=== PATIENT | female | born 1955 | race Caucasian/White ===

== ENCOUNTER 2025-03-03 09:58 | Outpatient (OUT) | payer MEDICARE, OTHER, SELFPAY ==
--- NOTE | 2025-03-03 10:00 | CA_ITS ---
Patient Name: OLGA BLOCK MR#: [id number] : 1955 Exam Date: 03/03/2025 Ordering Doctor: DR SALLY FINN M.D. ECHOCARDIOGRAM REPORT PROCEDURE: CA ECHO DOPPLER COMPLETE INDICATIONS: Nonrheumatic mitral valve regurgitation, smoker COMPARISON: None. DESCRIPTION: COMPLETE ECHOCARDIOGRAM Real-time transthoracic echocardiography with 2D, M-mode, spectral and color flow Doppler performed. QUALITY: Technical quality was good. LEFT VENTRICLE: Normal chamber size. Normal left ventricular wall thickness. Global systolic function is mildly to moderately reduced. There is global hypokinesis. LV EF: Mildly to moderately reduced left ventricular ejection fraction, (40%). DIASTOLIC: ATRIAL SEPTUM: Visually appears intact. LEFT ATRIUM: Normal chamber size. RIGHT ATRIUM: Normal chamber size. RIGHT VENTRICLE: Normal chamber size. TRICUSPID VALVE: Normal mobility and thickness. No stenosis with trivial regurgitation. Doppler studies reveal mildly (35-45) elevated right sided pressures. RVSP 40 mmHg MITRAL VALVE: Normal mobility and thickness. No evidence of mitral valve stenosis. There is no mitral annular calcification. Moderate mitral regurgitation. AORTIC VALVE: Normal trileaflet appearance. No visible sclerosis. Normal leaflet mobility. No evidence of aortic valve stenosis. No aortic regurgitation. AORTIC ROOT: Normal diameter and appearance. PULMONIC VALVE: Normal thickness and mobility. No stenosis. No regurgitation. PERICARDIUM: No evidence of pericardial effusion. IVC: Collapses with inspirations. IVC is normal in size. PLEURA: CONCLUSION: 1. The left ventricle is normal in size and exhibits global hypokinesis with mildly to moderately reduced systolic function. LVEF is estimated at 40%. 2. Normal right ventricular size and systolic function. 3. Moderate mitral regurgitation. 4. Mildly elevated right-sided pressures. Adult Echocardiography Procedure Report Left Ventricle LVEDD (3.7 - 5.6 cm): 5.06 cm LVESD (2.2 - 4.0 cm): 4.05 cm LVIVS thickness (0.6 - 1.2 cm): 0.88 cm LVPW thickness (0.5 - 1.0 cm): 0.96 cm e': 0.06 m/s E - e': 9.32 LVOT Max Gradient: 1.28 mm[Hg] LVOT Area (cm2): 0.57 m/s Peak Velocity (LVOT): 0.57 m/s Mean Velocity (LVOT): 0.38 m/s LVOT Diameter 2.21 cm Left Atrium LA Volume Index (2D A2C): 27.79 ml/m2 Left Atrium Systolic Dimension: 3.09 cm Mitral Valve MV E to A Ratio: 0.66 Mitral Valve A-Wave Peak Velocity: 0.78 m/s Mitral Valve E-Wave Peak Velocity: 0.51 m/s Right Ventricle Aorta AO Root Diam: 2.90 cm Aortic Valve AoV Area (Peak Jacobo): 1.99 cm2, 1.99 cm2 AoV Area (VTI): 2.17 cm2, 2.17 cm2 Peak Velocity(Antegrade Flow): 1.09 m/s Peak Gradient(Antegrade Flow): 4.75 mm[Hg] Mean Velocity(Antegrade Flow): 0.71 m/s Mean Gradient(Antegrade Flow): 2.33 mm[Hg] Velocity Time Integral: 22.30 cm Tricuspid Valve Peak Velocity (Regurgitant Flow): 3.03 m/s, 2.83 m/s Pulmonic Valve Peak Gradient: 2.23 mm[Hg], 1.49 mm[Hg] Right Atrium Right Atrium Systolic Pressure: 37.20 ml, 37.20 ml Dictated by: Rony Harrell M.D. on 03/04/2025 at 17:52 Approved by: Rony Harrell M.D. on 03/04/2025 at 17:56
== END 2025-03-03 09:59 | disposition home or self-care (01) ==
LOC: CARD 09:58
PROVIDERS: PCP Family Medicine; Visit Provider Internal Medicine Interventional Cardiology
DX: I34.0 Nonrheumatic mitral (valve) insufficiency (principal)
CPT/HCPCS: 93306

== ENCOUNTER 2025-08-29 09:55 | Outpatient (OUT) | payer MEDICARE, OTHER, SELFPAY ==
--- OUTSIDE RECORDS SUMMARY | 2022-08-21 10:15 | XMS_ITS | Continuity of Care Document ---
Author Organization [facility] Address [address] [place] [address] Phone Care Team Providers Care Counter Maker Name Role Phone Visci DO DO, Louis Unavailable Unavailable Procedures Procedure Date Admin Moderna Bvalent Booster 18 And Old er Moderna Bivalent Booster 18 And Older No Advance Directives Directive Yes / No Effective Date File Name No Information Encounters Encounter Description Practice Location Reason(s) For Visit Diagnoses Date Provider Providers Copied on Encounter [facility], [address], [place], [id number], [place] tel:[phone] COVID E[facility]D No Information Visci Louis. [address], [place], [id number], [place]. tel:[phone] Family History Family Member Type Diagnosis Age At Onset No Information Immunizations Vaccine Date Status Comments Influenza, quadrivalent, hig h dose, injectable, split virus, preservative free, 0.7 mL dose, Fluzone High-Dose Quad refused Source: New Immuniza tion Record Cov-19 administered Source: New Imm unization Record Payers Payer name Insurance type Covered democrat ID Authoriza tion(s) Medicare PPS MB [id number] Medicare PPS MB [id number] Social History Type Description Quantity Date Captured Comments Alcohol Use Details Unknown Caffeine Use Details Unknown Tobacco Use Status No Information Smoking Status No Information Sex Female Sexual Orientation Straight or heterosexual Gender Identity Female Chief Complaint And Reason For Visit No Information Reason For Referral Reason For Referral No Information Plan Of Treatment Date Type Action Status Goal Influenza vaccine. Due on No v due Goal Mammogram. Due on due Goal PRAPARE ASSESSMENT. Due on N ov due Goal Zoster vaccine (). Due on due Goal Tdap. Due on due Goal FOBT. Due on due Goal Lipid panel. Due on due Goal Depression screening. Due on due Goal Colonoscopy. Due on due History Of Present Illness Encounter Date Complaint History Of Prese nt Illness No Information Functional Status Date Functional Assessmen t No Information Instructions Date Instruction Additional Infor mation No Information Assessments Type Assessment Date No Information Patient Care Teams Name Effective Dates (start - stop) Status Members No Information
--- OUTSIDE RECORDS SUMMARY | 2025-08-29 09:59 | XMS_ITS | Clinical Summary ---
Author Organization [facility] Address [facility] [place] [address] Care Team Providers Care Strip Cleaner Name Role Phone Louis Lara MD Primary Care Provider + Haim Hunt [facility] [phone] Allergies Active AllergyReactionsCriticalityNoted DwuwCxrasfdnQsutrrjwuiWgsuSmf69/30/2023 Medications * This document contains information received from the source organization and may not represent a complete record from that organization. MedicationSigDispense QuantityRefillsLast FilledStart DateEnd DateStatus fluticasone (FLONASE) 50 mcg/actuation nasal spray Use 1 Kinsey in each nostril daily at bedtime.ctive carvedilol (COREG) 3.125 mg tablet Take 1 tablet by mouth twice daily.ctive LORazepam (ATIVAN) 2 mg tab Take by mouth daily at bedtime.Active omeprazole (PRILOSEC) 20 mg capsule Indications:Multiple sclerosis,Depression, unspecified depression typeTake 20 mg by mouth once daily.Active atorvastatin (LIPITOR) 20 mg tablet Take 20 mg by mouth every morning.07/09/2023ctive acetaminophen (TYLENOL) 500 mg tablet Take 2 tablets by mouth every 6 hours. 31 tablet ctive DULoxetine (CYMBALTA) 60 mg capsule Indications:Other depression,ParesthesiaTake 1 capsule by mouth two times a day. 180 capsule /20/2026Active OXcarbazepine (TRILEPTAL) 150 mg tablet Take 1 tablet by mouth two times a day. Needs appointment 180 tablet 5Active pregabalin (LYRICA) 150 mg capsule Indications:Paresthesia,Neuropathic painTake 1 capsule by mouth two times a day for 90 days. 180 capsule 110//[id number]/6Active lactobacillus rhamnosus (CULTURELLE) 10 billion cell capsule Take 1 capsule by mouth once daily. 31 capsule /iscontinued(Course of therapy completed) ARIPiprazole (ABILIFY) 5 mg tablet Indications:Other depressionTake 1 tablet by mouth once daily. 90 tablet /Discontinued(Course of therapy completed) pregabalin (LYRICA) 150 mg capsule Indications:Paresthesia,Neuropathic painTake 1 capsule by mouth two times a day for 90 days. 180 capsule /Discontinued Active Problems ProblemNoted DateDiagnosed PijjChtrusmwznfq08/27/2025Gastrointestinal hemorrhage 12/15/2024Lower abdominal pain01/21/2024Gastroesophageal reflux disease /Mixed vejlpoihukspvk05 Overview (09/30/2023): Last Assessment & Plan: Continue lipitor 20 mg daily Lipid levels are much better controlled Liver function normal Assessment & Plan (02/03/2024 9:25 AM EDT): Assessment: stable with statin therapy Assessment & Plan (10/01/2023 12:20 PM EST): Assessment: Controlled with statin. Monitored per PCP. Mitral valve oysgzuwiexzzp63/30/202312/ Overview (09/30/2023): Last Assessment & Plan: Will monitor with routine echocardiogram Assessment & Plan (02/03/2024 9:26 AM EDT): Assessment: stable, moderate per echo Assessment & Plan (10/01/2023 12:22 PM EST): Assessment: Stable, moderate per last echo 03/2023. Follows with cardiology. Chronic pain dmafhvqs89/27/2016Tobacco use pbacveqt49/27/2016 Assessment & Plan (02/03/2024 9:28 AM EDT): Assessment: quit 06/2022 30 pack years Assessment & Plan (10/01/2023 12:24 PM EST): Assessment: Quit 4 months ago Raynaud iurscrc4012/22/2014Neuropathic pain12/22/2014Peripheral neuropathy 12/18/2014bnormality of gait07/11/2014Multiple gwivkrkps53/23/2014 Assessment & Plan (02/03/2024 9:25 AM EDT): Assessment: stable , follows with neurology last ov 07/2023 Assessment & Plan (10/01/2023 12:20 PM EST): Assessment: Stable, following with neurology - last seen 08/11/23. Not currently on medications Depressive nudczgtm50/29/2012 Assessment & Plan (10/01/2023 12:24 PM EST): Assessment: On RX medication Generalized anxiety wwlntdeg12Essential lwblzlheufop05/29/2012 09/30/2023 Overview (09/30/2023): Last Assessment & Plan: Hypertension is Well-controlled blood pressure 110/70 PCP stopped her lisinopril related to an allergic reaction- She had a rash Continue carvedilol 3.125 mg twice daily Assessment & Plan (02/03/2024 9:26 AM EDT): Assessment: stable with current therapy Coronary lsycauszfcczbxr63 Overview (09/30/2023): MILD 3-VESSEL CAD Last Assessment & Plan: Coronary artery disease is stable Continue GDMT continue risk factor modifications- heart healthy diet, regular exercise as tolerated and continue all medications. MILD 3-VESSEL CAD Assessment & Plan (02/03/2024 9:27 AM EDT): Assessment: mild 3 vessel cad Stable Assessment & Plan (10/01/2023 12:23 PM EST): Assessment: Stable, EF 55-60% per last echo. Follows with cardiology Resolved Problems ProblemNoted DateDiagnosed DateResolved DateAttention to jmgpuulnj39/05/2024 02/18/2024elvic abscess in wnkpyz48S/P ggpstduqy22/18/2023 3Colonic massRectal bleed/02/2024Iron deficiency aixxal33/Lupus vwwyledabmyqv49/15/2013ongestive heart akpvtrp71 Overview (12/15/2024): EF BACK TO NML (65%) 01/30 Encounters * This document contains information received from the source organization and may not represent a complete record from that organization. DateTypeDepartmentCare EjqvHxgaowslauz74/19/20[address] [address] Katty Parekh APRN.FOOD AND BEVERAGE SERVER Refill Uqhqbot7807/31/20253452Tnbhrn47/08/2025 Patient Msg Medical Records [address] [place] [address] Provider, [facility] Important Notice for Our Medicare Patients Regarding Appointment Scheduling 07/18/2025[address] [address] Self Appointment (Called patient and scheduled her [facility] appointment request for a virtual visit.)from Last 3 Months Immunizations ImmunizationAdministration DatesNext Dueinfluenza (HD-IIV3) vaccine, age 65+ yr, high dose, trivalent, PF (FLUZONE HIGH-DOSE)12/16/2019influenza (HD-IIV4) vaccine, age 65+ yr, high dose, quadrivalent, PF (FLUZONE HIGH-DOSE)09/02/2021, 09/04/2020pneumococcal conjugate (PCV13) vaccine, 13 valent (PREVNAR 13) 12/16/2019pneumococcal conjugate (PCV20) vaccine, 20 valent (PREVNAR 20) 07/26/2023zoster (RZV) vaccine, recombinant (SHINGRIX)02/03/2021,09/04/2020 Family History Medical HistoryRelationCommentssuicide attempt [Other]Hoqriow1430 shot himself Normal Pressure Hydrocephalus [Other]Maternal GrandmotherVP shunt placed schizophrenia [Other]Maternal Grandmotherschizophrenia [Other]MotherAlcoholism [Other]OtherMultiple family memberssuicide [Other]OtherNephewMultiple Sclerosis No Family HistoryRelationStatusCommentsBrotherMaternal GrandmotherMotherOther Social History Tobacco UseTypesPacks/DayYears UsedDateSmoking Tobacco: UdjotqAprbfwvlqh499 06/24/1992 - 06/24/2022mokeless Tobacco: Never Tobacco Cessation:Counseling Given: Not Answered Comments:previously quit 03/19/2016, started smoking again Alcohol UseStandard Drinks/WeekCommentsNo0 (1 standard drink = 0.6 oz pure alcohol)[facility] UtilitiesAnswerDate RecordedIn the past 12 months has the [employer], gas, oil, or water [facility] threatened to shut off services in your home?No 02/16/2024Overall Financial Resource Strain (CARDIA)AnswerDate RecordedHow hard is it for you to pay for the very basics like food, housing, medical care, and heating?Not hard at all10/28/2023HQ-2AnswerDate RecordedPHQ-2 / Hunger Vital SignAnswerDate RecordedWithin the past 12 months, you worried that your food would run out before you got the money to buymore.Never true02/16/2024 Within the past 12 months, the food you bought just didn't last and you didn't have money to get more.Never true02/16/2024RAPARE - TransportationAnswerDate RecordedIn the past 12 months, has lack of transportation kept you from medical appointments or from getting medications?No02/16/2024In the past 12 months, has lack of transportation kept you from meetings, work, or from getting things needed for daily living?No02/16/2024Housing Stability Vital SignAnswerDate RecordedIn the last 12 months, was there a time when you were not able to pay the mortgage or rent on time?No02/16/2024In the last 12 months, how many places have you lived?In the last 12 months, was there a time when you did not have a steady place to sleep or slept in arribaelter (including now)?No 02/16/2024rea Deprivation IndexAnswerDate RecordedNational Score (1-100), lower number is lower gntt5665State Score (1-10), lower number is lower risk8 3Data from: https://www.neighborhoodatlas.medicine.[facility].edu/. Last address used for qsltdzkseus[address]CommentsNoSex and Gender InformationValueDate RecordedSex Assigned at BirthNot on fileLegal Sex Fyigut7005/30/2014 12:00 PM EDTGender UohxfjwuMpodkd48/07/2020 11:19 AM EDTSexual OrientationNot on fileOccupationIndustryJob Start DateJob End DateLandscapingNot on fileNot on fileNot on file Last Filed Vital Signs Vital SignReadingTime TakenCommentsBlood Aoiichxp029/7002 9:29 AM EST Xnthy6627 9:29 AM QKZNthnyrnnfxy99.1 ??C (97 ??F)07/05/2024 10:45 AM EDT Respiratory Vpru6201 11:15 AM EDTOxygen Eljwvxbhfo05%12/13/2024 9:29 AM ESTInhaled Oxygen Concentration--Kturol55.5 kg (140 lb)12/13/2024 9:29 AM EST Myaacu170.2 cm (5' 7 )12/13/2024 9:29 AM ESTBody Mass Index21.9312/13/2024 9:29 AM EST Plan of Treatment Health MaintenanceDue DateLast DoneCommentsAnnual PCP Team Chronic Disease Visit 1972Hepatitis C Jpxodqgkp57/28/1972DTaP,Tdap,Td Vaccine (1 - Tdap) 1973Mammogram Dxzgsemrj84/28/1994CT Qfshzuswuhee66/28/1999Cologuard (FIT-DNA)06/15/19992697Uqftlcepzjg71/28/1999Fecal Occult Blood1999Lung Cancer Iwjiwmjwq75/28/2004LDL Szjtbdzoccz77Medicare Annual Wellness Visit06/19/2018Lipid Zwyhzuirh45one Density Screening 2019Advance Directive Ztbsfythen96/01/2025Covid-19 Vaccine ( season)/12/2021, 09/02/2021, 01/04/2021, Additional history exists Influenza Vaccine (#1)/02/2023, 08/15/2022, 09/02/2021, Additional history existsDiabetes Gijsaqrwu89/04/2025, 09/14/2024, 06/08/2024, Additional history existsColorectal Cancer Vebanszmc98/04/2029Sigmoidoscopy /01/2024, 01/21/2024, 08/06/2023RSV Vaccine (1 - 1-dose 75+ series) 2029Shingrix LylxyehUsypqjeyc59/18/2021, 09/04/2020Pneumococcal Vaccine: 50+Krdcuvlnj30/08/2023, 12/16/2019 Procedures Procedure NamePriorityDate/TimeAssociated DiagnosisCommentsBASIC METABOLIC PANEL Zocsace5102/17/2024 7:15 AM EDT QWMNQCGYRHLYOAkmlmkw93/04/2024 2:16 PM EDT Follow-up examination after colorectal surgery Attention to ileostomy (HCC) LIPID PANEL, ZPGHJRRQsuximv29/19/2014 2:21 PM EDT Multiple sclerosis (HCC) from Last 3 Months or Most Recently Relevant to Health Maintenance Results * (ABNORMAL) BASIC METABOLIC PANEL (02/17/2024 7:15 AM EDT)ComponentValueRef RangeTest MethodAnalysis TimePerformed AtPathologist HawpwulwdIvhivgz2386 - 99 mg/dL02/17/2024 8:22 AM EDTFAIRVIEW LABORATORYComment: The [place] Diabetes Association (ADA) provides guidance for cutoff values for fasting glucose andrandom glucose. The ADA defines fasting as no caloric intake for at least 8 hours. Fasting plasma glucose results between 100 to 125 mg/dL indicate increased risk for diabetes (prediabetes). Fasting plasma glucose results greater than or equal to 126 mg/dL meet the criteria for diagnosis of diabetes. In the absence of unequivocal hyperglycemia, results should be confirmed by repeat testing. In a patient with classic symptoms of hyperglycemia or hyperglycemic crisis, random plasma glucose results greater than or equal to 200 mg/dL meet the criteria for diagnosis of diabetes. Reference: Standards of Medical Care in Diabetes 2016, [place] Diabetes Association. Diabetes Care. 2016.39(Suppl 1). SJR468 - 21 mg/dL02/17/2024 8:22 AM EDTFAIRVIEW LABORATORYCreatinine0.890.58 - 0.96 mg/dL02/17/2024 8:22 AM EDTFAIRVIEW PGPWIMSYBRLhvgvm604464 - 144 mmol/L 02/17/2024 8:22 AM EDTFAIRVIEW LABORATORYPotassium3.1(L)3.7 - 5.1 mmol/L 02/17/2024 8:22 AM EDTFAIRVIEW UVEUTKSPNMJfhbivdc585(H)97 - 105 mmol/L02/17/2024 8:22 AM EDTFAIRVIEW JLIOJGVNJDOU171(L)22 - 30 mmol/L02/17/2024 8:22 AM EDT [facility] LABORATORYAnion Rtx832 - 18 mmol/L02/17/2024 8:22 AM EDTFAIRVIEW LABORATORYCalcium, Total8.4(L)8.5 - 10.2 mg/dL02/17/2024 8:22 AM EDNANTUCKET COTTAGE HOSPITAL LABORATORYEstimated Glomerular Filtration Rate70>=60 mL/min/1.73m 02/17/2024 8:22 AM [facility]ORATORYComment:Estimated Glomerular Filtration Rate (eGFR) is calculated using the 2020 CKD-EPI creatinine equation. This equation utilizes serum creatinine, sex, and age as parameters. The creatinine assay has traceable calibration to isotope dilution-mass spectrometry. Refer to KDIGO guidelines for clinical interpretation. In patients with unstable renal function, e.g. those with acute kidney injury, the eGFRmay not accurately reflect actual GFR.Specimen (Source)Anatomical Location / LateralityCollection Method / VolumeCollection TimeReceived TimeBloodBLOOD SPECIMEN / Unknown Venipuncture / Jxdqhjy8502/17/2024 7:15 AM EDT02/17/2024 7:29 AM EDT Narrative Authorizing ProviderResult TypeResult StatusCherry Kellogg MDLABORATORYFinal Result Performing OrganizationAddressCity/State/[facility] CenterPhone Number [address] * SIGMOIDOSCOPY (01/21/2024 2:16 PM EDT)Anatomical RegionLateralityModalityOther Specimen (Source)Anatomical Location / LateralityCollection Method / Volume Collection TimeReceived Time01/21/2024 2:16 PM EDT Narrative 01/21/2024 2:53 PM EDT [facility] Gastrointestinal End[facility] Patient Name: Snow Castaneda Procedure Date: 01/21/2024 2:16 PM Date of : 1955 Admit Type: Outpatient Age: 68 Room: [place] [address] Gender: Female Note Status: Finalized Attending MD: Cherry Kellogg MD, [id number] Procedure: ? Flexible Sigmoidoscopy Indications: ? Preoperative assessment Providers: ? Cherry Kellogg MD Patient Profile: ? Last Colonoscopy: 2022. Referring Physician: ?? Cherry Kellogg MD (Referring MD) Medicines: ? Monitored Anesthesia Care Complications: ? No immediate complications. Estimated blood loss: ? Minimal. Requesting Provider: ?? Procedure: ? Pre-Anesthesia Assessment: ? - Prior to the procedure, a History and Physical ? was performed, and patient medications and ? allergies were reviewed. The patient's tolerance of ? previous anesthesia was also reviewed. The risks ? and benefits of the procedure and the sedation ? options and risks were discussed with the patient. ? All questions were answered, and informed consent ? was obtained. Prior Anticoagulants: The patient has ? taken no anticoagulant or antiplatelet agents. ASA ? Grade Assessment: III - A patient with severe ? systemic disease. After reviewing the risks and ? benefits, the patient was deemed in satisfactory ? condition to undergo the procedure. ? After obtaining informed consent, the scope was ? passed under direct vision. The Colonoscope was ? introduced through the anus and advanced to the ? descending colon. The flexible sigmoidoscopy was ? accomplished without difficulty. The patient ? tolerated the procedure well. The quality of the ? bowel preparation was good. Moderate Sedation: ? MAC anesthesia was administered by the anesthesia team. Total Procedure Duration: 0 hours 14 minutes 34 seconds Findings: ? A post-surgical anastomosis was found on digital exam 4 cm from the ? anal verge. This was found to be patent and intact. Pertinent ? negatives include no palpable rectal lesions. ? A 2 mm polyp was found in the descending colon. The polyp was ? hyperplastic. The polyp was removed with a jumbo cold forceps. ? Resection and retrieval were complete. Estimated blood loss was ? minimal. ? There was evidence of a prior end-to-end colo-rectal anastomosis in ? the distal rectum. This was patent and was characterized by healthy ? appearing mucosa and an intact appearance. The anastomosis was ? traversed. ? A 2 mm polyp was found in the distal rectum. The polyp was ? hyperplastic. The polyp was removed with a jumbo cold forceps. ? Resection and retrieval were complete. Estimated blood loss was ? minimal. ? The exam was otherwise without abnormality. Impression: ?- Patent post-surgical anastomosis found on digital ? exam. ? - One 2 mm polyp in the descending colon, removed ? with a jumbo cold forceps. Resected and retrieved. ? - Patent end-to-end colo-rectal anastomosis, ? characterized by healthy appearing mucosa and an ? intact appearance. ? - One 2 mm polyp in the distal rectum, removed with ? a jumbo cold forceps. Resected and retrieved. ? - The examination was otherwise normal. Recommendation: ?- Discharge patient to home. ? - Resume previous diet. ? - Continue present medications. ? - Await pathology results. ? - Return to my office as previously scheduled. Procedure Code(s): ? --- Professional --- ? 12242, Sigmoidoscopy, flexible; with biopsy, single ? or multiple Diagnosis Code(s): ? --- Professional --- ? Z98.0, Intestinal bypass and anastomosis status ? D12.4, Benign neoplasm of descending colon ? D12.8, Benign neoplasm of rectum ? Z01.818, Encounter for other preprocedural ? examination CPT copyright 2020 [place] [employer]. All rights reserved. The codes documented in this report are preliminary and upon advisory internship review may be revised to meet current compliance requirements. Attending Participation: ? I personally performed the entire procedure. Scope In: 2:31:23 PM Scope Out: 2:45:57 PM MD Cherry Wilkins MD 01/21/2024 2:51:01 PM This report has been signed electronically by Cherry Kellogg MD Number of Addenda: 0 Note Initiated On: 01/21/2024 2:16 PM Estimated Blood Loss: ? Estimated blood loss was minimal. Authorizing ProviderResult TypeResult StatusCherry Kellogg MDDIGESTIVE DISEASEFinal Result * (ABNORMAL) LIPID PANEL BASIC (06/06/2014 2:21 PM EDT)ComponentValueRef Range Test MethodAnalysis TimePerformed AtPathologist TylzgutxqKmtccwrftjzu38407 - 149 mg/dLMERCY [facility]ALTH [address] [facility] LABORATORYCholesterol, Sdfvl678(H)100 - 199 mg/dLMERCY HEALTH ST. [facility] LABORATORYHDL Sabsymavgai25>55 mg/dLMERCY HEALTH ST. [facility] LABORATORYVLDL Bnxoveqjfwo137 - 40 mg/dLMERCY HEALTH ST[address] [facility] LABORATORYLDL Cholesterol, Mselimxkow51159 - 129 mg/dLMERCY [address]ALTH ST[address] [facility] LABORATORYFasting TimeUnknownhrsMERCY HEALTH ST. [facility] LABORATORYTC:HDL Ratio 2.541.00 - 5.00[facility] LABORATORYLDL:HDL Ratio1.250.50 - 3.[address] [facility] LABORATORYNon HDL Hkwcrvkamfo31052 - 159 mg/dLMERCY HEALTH ST. [facility] LABORATORYSpecimen (Source)Anatomical Location / Laterality Collection Method / VolumeCollection TimeReceived TimeBlood specimen (specimen)BLOOD SPECIMEN / Llncold0406/06/2014 2:21 PM EDT06/06/2014 2:23 PM EDT Narrative Authorizing ProviderResult TypeResult StatusKayla Looney MDLABORATORYFinal ResultPerforming OrganizationAddressCity/State/ZIP CodePhone Number [facility] [address] [place] [address] from Last 3 Months or Most Recently Relevant to Health Maintenance Insurance Advance Directives * Full Code (Latest Code Status on File) Date ActivatedDate InactivatedComments01/21/2024 9:15 PM01/22/2024 4:45 PMQuestion AnswerCommentsFull Code Order Discussed With:* Patient Care Teams Team MemberRelationshipSpecialtyStart DateEnd Date Louis Lara MD [address] [place] [id number] PCP - GeneralFamily Medicine05/30/14 Haim Hunt [address] [address] Gastroenterology01/22/24
--- OUTSIDE RECORDS SUMMARY | 2025-08-29 09:59 | XMS_ITS | Clinical Summary ---
Author Organization [facility] Address [address] [place] [address] Care Team Providers Care Medical Territory Manager Name Role Phone Louis Lara MD Primary Care Provider [phone] Allergies Active AllergyReactionsCriticalityNoted XavvKrvpcqvfKtcnpuvdniXfcgPmi39/30/2023 Sulfamethoxazole-IjyuaquedkiaPqadjce29/06/2023 Medications MedicationSigDispense QuantityRefillsLast FilledStart DateEnd DateStatus pregabalin (Lyrica) 150 mg capsule TAKE 1 CAPSULE BY MOUTH TWICE DAILY FOR 90 DAYS.01/22/2023ctive ARIPiprazole (Abilify) 5 mg tablet Take 2.5 mg by mouth in the morning.02/27/2023ctive DULoxetine (Cymbalta) [address] capsule Take 1 capsule twice a day by oral route for 30 days.10/09/2022ctive omeprazole (PriLOSEC) [address] capsule Take 20 mg by mouth in the morning.01/25/2023ctive LORazepam (Ativan) 2 mg tablet TAKE 1 TABLET BY MOUTH EVERYDAY AT YZVHGAZ3402/27/2023ctive escitalopram (Lexapro) 5 mg tablet Take 5 mg by mouth in the morning.Active OXcarbazepine (Trileptal) 150 mg tablet Take 150 mg by mouth twice a day.10/05/2023ctive busPIRone (Buspar) 10 mg tablet Take 10 mg by mouth two times daily.02/27/2025tive atorvastatin (Lipitor) 20 mg tablet Indications:Atherosclerosis of eklutna coronary artery of ekl[place] heart without angina pectoris,Mixed hyperlipidemiaTake 1 tablet (20 mg) by mouth once daily as directed for 360 doses. 90 tablet /ctive losartan (Cozaar) 25 mg tablet Indications:Essential hypertensionTake 1 tablet (25 mg) by mouth in the morning. 90 tablet /ctive dapagliflozin propanediol (Farxiga) 10 mg Indications:Essential hypertensionTake 1 tablet (10 mg) by mouth in the morning. 90 tablet ctive carvedilol (Coreg) 3.125 mg tablet Indications:Essential hypertensionTake 1 tablet (3.125 mg) by mouth with breakfast and with evening meal. 180 tablet 5Active Active Problems ProblemNoted DateDiagnosed JzqcKaciwnlkqwxo74/27/2025Lower abdominal pain 01/21/2024elvic abscess in aebumu94/03/2024Gastroesophageal reflux /olonic mass/03/2024Gastrointestinal hemorrhage associated with anorectal zcmamt22/03/2024Iron deficiency iaqddc05/03/2024Mitral valve qmnhzecvqfpza37/30/202306/ Assessment & Plan (06/19/2023 11:15 AM EDT): Will monitor with routine echocardiogram Assessment & Plan (04/17/2023 11:17 AM EDT): Moderate mitral valve regurg on current echo- With recovered/preserved ejection fraction Mixed sjphxbvtjdtgyg41/30/2023 Assessment & Plan (06/19/2023 11:15 AM EDT): Continue lipitor 20 mg daily Lipid levels are much better controlled Liver function normal Assessment & Plan (04/17/2023 11:17 AM EDT): Lipid profile elevated cholesterol 267 And LDL is 136 Start with low-dose Lipitor 20 mg daily in light she has MS and I had a long discussion with her and her that if her muscle aches joint aches changed at all to stop taking the Lipitor and notify the office Repeat liver function and lipid profile in 2 to 3 months and prescription was provided and she voiced understanding Chronic pain sfxwjuic01Tobacco use ntylzdna82/27/2016 04/17/2023 Assessment & Plan (04/17/2023 11:15 AM EDT): She has quit smoking and I commended her on her good work She is upset that she has gained about 30 pounds Neuropathic paineripheral luingfbvva99 Abnormality of gaitMultiple ibubmtjym76 Disorder of connective peoeej81Lupus wiawoqjayirev25/15/2013 04/17/2023Raynaud Overview (04/17/2023): PHENOMENON Acute on chronic systolic heart failure, NYHA class Overview (04/17/2023): EF BACK TO NML (65%) 01/30 Assessment & Plan (06/19/2023 1:06 PM EDT): NYHC- II currently euvolemic without exacerbation Continue GDMT Diuretic therapy Monitor daily weights, I&O, fluid restriction 1.5-2L/day, renal function and electrolytes- Assessment & Plan (04/17/2023 11:25 AM EDT): [facility] II, All 2021 ejection fraction was 45% on current echo it is recovered 55 to 60% Currently she is euvolemic without exacerbation Continue GDMT- Lisinopril was DC'd related to allergic reaction/rash, continue carvedilol and will start Lipitor Diuretic therapy-None currently Monitor daily weights, I&O, fluid restriction 1.5-2L/day, renal function and electrolytes- Coronary xoyacunuzojoglv53 Overview (04/17/2023): MILD 3-VESSEL CAD Assessment & Plan (06/19/2023 11:16 AM EDT): Coronary artery disease is stable Continue GDMT continue risk factor modifications- heart healthy diet, regular exercise as tolerated and continue all medications. Assessment & Plan (04/17/2023 11:19 AM EDT): Coronary artery disease is stable without any concerning symptoms Continue GDMT- Carvedilol and will start low-dose Lipitor trial to see how she feels with MS continue risk factor modifications- heart healthy diet, regular exercise as tolerated and continue all medications. Bipolar 1 fwnaytmz56epressive Essential dblvvvcvjiaz33 Assessment & Plan (04/17/2023 11:18 AM EDT): Hypertension is Well-controlled blood pressure 110/70 PCP stopped her lisinopril related to an allergic reaction- She had a rash Continue carvedilol 3.125 mg twice daily Generalized anxiety xcjvyeuk44 Encounters DateTypeDepartmentCare JbakJckrljuocmq20/06/2025Telephone [address] [address] Sona Saucedo MA 07/16/2025Refill [facility] [address] [place] [address] Robbin Kumar MD Essential hypertensionfrom Last 3 Months Family History Medical HistoryRelationNameCommentsAlzheimer's diseaseOtherCancerOtherRelation NameStatusCommentsOther Social History Tobacco UseTypesPacks/DayYears UsedDateSmoking Tobacco: FormerCigarettesQuit: mokeless Tobacco: NeverAlcohol UseStandard Drinks/WeekCommentsNot Currently0 (1 standard drink = 0.6 oz pure alcohol)UT Safety & EnvironmentAnswer Date RecordedFear of Current or Ex-PartnerNot on file12/10/2023Emotionally AbusedNot on file12/10/2023hysically AbusedNot on 12/10/2023Sexually Abused Not on file12/10/2023hysically or Sexually AbusedNot on file12/10/2023 CommentsUnknownSex and Gender InformationValueDate RecordedSex Assigned at Not on fileLegal EqvJixfhk76/29/2022 10:35 PM EDTGender IdentityNot on file Sexual OrientationNot on file Last Filed Vital Signs Vital SignReadingTime TakenCommentsBlood Sbjbucdx466/6907 11:44 AM EDT Zwqme188704/27/2025 11:44 AM EDTTemperature--Respiratory Rate--Oxygen Saturation 93%04/27/2025 11:44 AM EDTInhaled Oxygen Concentration--Owrbrq25.8 kg (112 lb) 04/27/2025 11:44 AM FBKMcbqph683.7 cm (5' 8 )04/27/2025 11:44 AM EDTBody Mass Index17.0307 11:44 AM EDT Plan of Treatment DateTypeDepartmentCare Team (Latest Contact Info)Iujrnzdzobv32/13/2026 1:00 PM ESTOffice Visit [facility] [place] [address] [place] [address] Robbin Kumar MD [address] [facility] [address] [facility] [place] [address] Health MaintenanceDue DateLast DoneCommentsCT Fhdpkkvukjie1954olonoscopy 1954FIT-DNA1954FIT1954FOBT1954Medicare Annual Wellness (AWV)4Depression Xurdfwspo34/28/1966Adult Watscjf3506/15/1976Mammogram 1994Fall Risk Udasttofj33/28/2019COVID-19 Vaccine ( season) , 08/21/2022, 09/02/2021, Additional history existsInfluenza Vaccine (#1)51, 08/15/2022, 09/02/2021, Additional history existsColorectal Cancer Otnfuljeu46/04/6753Qtgeiwonxilmy77 Zoster SauynghcQqrnvpolz19/18/2021, 09/04/2020Pneumococcal Vaccine: 50+ Years Osfsigjvl18/08/2023, 12/16/2019HIB VaccinesAged OutNo longer eligible based on patient's age to complete this topicHPV VaccinesAged OutNo longer eligible based on patient's age to complete this topicIPV VaccinesAged OutNo longer eligible based on patient's age to complete this topicMeningococcal B VaccineAged OutNo longer eligible based on patient's age to complete this topicMeningococcal VaccineAged OutNo longer eligible based on patient's age to complete this topic Rotavirus VaccinesAged OutNo longer eligible based on patient's age to complete this topic Insurance Care Teams Team MemberRelationshipSpecialtyStart [place] [address] [place] [address] [facility]03/19/23
--- OUTSIDE RECORDS SUMMARY | 2025-08-29 09:59 | XMS_ITS | Clinical Summary ---
Author Organization [facility] Address [address] [place] [address] Care Team Providers Care Visual Communications Instructor Name Role Phone Louis Lara MD Primary Care Provider + [phone] Allergies Active AllergyReactionsCriticalityNoted DateComments Sulfamethoxazole-VacycgqvdoizPziadpy55/06/2023 Medications MedicationSigDispense QuantityRefillsLast FilledStart DateEnd DateStatus ARIPiprazole (Abilify) 5 MG tablet Take 5 mg by mouth in the morning.Active carvedilol (Coreg) 3.125 MG tablet every 12 (twelve) hours.Active cefdinir (Omnicef) 300 MG capsule Take 300 mg by mouth in the morning and 300 mg before bedtime.11/03/2022ctive cephalexin (Keflex) 500 MG capsule TAKE 1 CAPSULE THREE TIMES DAILY UNTIL GONE01/29/2023ctive DULoxetine (Cymbalta) [address] capsule 10/09/2022ctive fluticasone (Flonase) 50 MCG/ACT nasal spray Administer 1 spray into each nostril in the morning and 1 spray before bedtime. 12/22/2022ctive HYDROcodone-acetaminophen (Currie) 5-325 MG tablet take 1 tablet by mouth three times a day if needed for ACUTE pain11/25/2022 Active linaCLOtide (Linzess) 72 MCG capsule 1 (one) time each day at the same time.Active LORazepam (Ativan) 2 MG tablet Take 2 mg by mouth at bedtime.Active methylPREDNISolone (Medrol Dospak) 4 MG tablets use as directed FOLLOW DIRECTIONS ON BACK OF FOIL PACK01/20/2023ctive minocycline 100 MG capsule Take 100 mg by mouth in the morning and 100 mg before bedtime.02/25/2023ctive omeprazole (PriLOSEC) [address] capsule 1 (one) time each day at the same time.Active predniSONE (Deltasone) 20 MG tablet TAKE 3 TABLETS EVERY MORNING FOR 3 DAYS, THEN 2 TABLETS FOR 3 DAYS, THEN 1 TABLET FOR 3 DAYS12/01/2022ctive pregabalin (Lyrica) 150 MG capsule 1 capsule 1 (one) time each day at the same time.Active traMADol (Ultram) 50 MG tablet TAKE 1 TABLET BY MOUTH FOUR TIMES A DAY NEEDED FOR PAIN12/11/2022ctive triamcinolone (Kenalog) 0.1 % cream apply to affected area TWO TIMES PER WEEK02/20/2023ctive escitalopram (Lexapro) 10 MG tablet Take 10 mg by mouth in the morning.Active Active Problems No known active problems Family History Medical HistoryRelationNameCommentsCancerFatherDiabetesMaternal Grandfather DiabetesMotherMental illnessMotherRelationNameStatusCommentsFatherMaternal GrandfatherMother Social History Tobacco UseTypesPacks/DayYears UsedDateSmoking Tobacco: FormerCigarettes Smokeless Tobacco: Never Comments:*Current smoker Alcohol UseStandard Drinks/WeekCommentsNever0 (1 standard drink = 0.6 oz pure alcohol)caffeine: 3-4 cups/dayCommentsUnknownSex and Gender Information ValueDate RecordedSex Assigned at BirthNot on fileLegal FcyUvabzj17/15/2023 11:23 PM EDTGender IdentityNot on fileSexual OrientationNot on file Last Filed Vital Signs Vital SignReadingTime TakenCommentsBlood Pressure--Pulse--Temperature-- Respiratory Rate--Oxygen Saturation--Inhaled Oxygen Concentration--Yoetvr46.2 kg (115 lb)11/15/2021 12:00 PM KWKNirksn614.2 cm (5' 7 )03/06/2023 12:00 PM EDTBody Mass Index18.01011/15/2021 12:00 PM EST Plan of Treatment Not on file Insurance Care Teams Team MemberRelationshipSpecialtyStart DateEnd Date Louis Lara MD [address] [place] [address] PCP - GeneralFamily Medicine03/07/24
--- OUTSIDE RECORDS SUMMARY | 2025-08-29 09:59 | XMS_ITS | Clinical Summary ---
Author Organization [facility] Address [address] [place] [address] Phone Care Team Providers Care [employer] Name Role Phone Louis Lara MD Primary Care Provider + Social History Tobacco UseTypesPacks/DayYears UsedDateSmoking Tobacco: Never Assessed CommentsUnknownSex and Gender InformationValueDate RecordedSex Assigned at Not on fileLegal JfhStidda34/26/2022 10:36 AM ESTGender IdentityNot on file Sexual OrientationNot on file Plan of Treatment Health MaintenanceDue DateLast DoneCommentsCT Zupsoqscepqs1954Colonoscopy 1954olorectal Cancer Tdqacmxjn1954FIT-DNA (Cologuard)1954FIT 1954Lipid Panel06/15/19548667Fdungjqrecdji1954Yearly Adult Physical 1954MMR Vaccines (1 of 1 - Standard series)1955Hepatitis C Screening 1972DTaP/Tdap/Td Vaccines (1 - Tdap)06/15/19769423Qvpzpjtoc46/28/1994 Pneumococcal Vaccine (1 of 1 - PCV)2004Zoster Vaccines (1 of 2)2004 Bone Density Scan2019Influenza Vaccine (#1)5COVID-19 Vaccine (1 - 2024- season)2025RSV High Risk: (Elderly (60+) or Population) (1 - 1-dose 75+ series)2029HIB VaccinesAged OutNo longer eligible based on patient's age to complete this topicHPV VaccinesAged OutNo longer eligible based on patient's age to complete this topicHepatitis A VaccinesAged OutNo longer eligible based on patient's age to complete this topicHepatitis B VaccinesAged OutNo longer eligible based on patient's age to complete this topicIPV Vaccines Aged OutNo longer eligible based on patient's age to complete this topic Meningococcal VaccineAged OutNo longer eligible based on patient's age to complete this topicRotavirus VaccinesAged OutNo longer eligible based on patient's age to complete this topic Care Teams Team MemberRelationshipSpecialtyStart DateEnd Louis Lara MD [address] [place] [id number] [facility]02/18/13
--- NOTE | 2025-08-29 10:00 | CA_ITS ---
Patient Name: OLGA BLOCK MR#: [id number] : 1955 Exam Date: 08/29/2025 Ordering Doctor: DR SALLY FINN M.D. ECHOCARDIOGRAM REPORT PROCEDURE: CA ECHO DOPPLER COMPLETE INDICATIONS: Chronic systolic heart failure COMPARISON: None. DESCRIPTION: COMPLETE ECHOCARDIOGRAM Real-time transthoracic echocardiography with 2D, M-mode, spectral and color flow Doppler performed. QUALITY: Technical quality was good. LEFT VENTRICLE: Normal chamber size. Normal left ventricular wall thickness. LV EF: Global left ventricular systolic function is difficult to assess but appears preserved; visually estimated ejection fraction is 55%. No significant wall motion abnormalities. Prominent papillary muscle. DIASTOLIC: Normal diastolic function. ATRIAL SEPTUM: Visually appears intact. LEFT ATRIUM: Normal chamber size. RIGHT ATRIUM: Normal chamber size. RIGHT VENTRICLE: Normal chamber size. Normal right ventricular systolic function. TRICUSPID VALVE: Normal mobility and thickness. No stenosis with mild regurgitation. Doppler studies reveal mildly (35-45) elevated right sided pressures. RVSP 35 mmHg MITRAL VALVE: Normal mobility and thickness. There is no mitral annular calcification. Mild to moderate mitral regurgitation. AORTIC VALVE: Normal trileaflet appearance. No visible sclerosis. Normal leaflet mobility. No evidence of aortic valve stenosis. Trivial aortic regurgitation. AORTIC ROOT: Normal diameter and appearance. Ascending aorta is normal in size. PULMONIC VALVE: Not well visualized. PERICARDIUM: No evidence of pericardial effusion. IVC: Collapses with inspiration. CONCLUSION: 1. Global left ventricular systolic function is difficult to assess but appears preserved; visually estimated ejection fraction is 55% 2. Normal right ventricular size and systolic function 3. Normal diastolic function 4. Mild tricuspid regurgitation 5. Mildly elevated right ventricular systolic pressure; RVSP 35 mmHg 6. Mild to moderate mitral regurgitation Adult Echocardiography Procedure Report Left Ventricle LVEDD (3.7 - 5.6 cm): 4.34 cm LVESD (2.2 - 4.0 cm): 3.11 cm LVIVS thickness (0.6 - 1.2 cm): 0.91 cm LVPW thickness (0.5 - 1.0 cm): 0.77 cm e': 0.07 m/s E - e': 4.44 LVOT Max Gradient: 1.76 mm[Hg] LVOT Area (cm2): 0.66 m/s Peak Velocity (LVOT): 0.66 m/s Mean Velocity (LVOT): 0.42 m/s LVOT Diameter 1.98 cm Left Atrium LA Volume Index (2D A2C): 26.59 ml/m2 Left Atrium Systolic Dimension: 2.65 cm Mitral Valve MV E to A Ratio: 0.55 Mitral Valve A-Wave Peak Velocity: 0.59 m/s Mitral Valve E-Wave Peak Velocity: 0.32 m/s Right Ventricle Aorta AO Root Diam: 2.90 cm Ascending Ao Diam: 2.59 cm Aortic Valve AoV Area (Peak Jacobo): 1.92 cm2, 1.92 cm2 AoV Area (VTI): 2.01 cm2, 2.01 cm2 Peak Velocity(Antegrade Flow): 1.06 m/s Peak Gradient(Antegrade Flow): 4.49 mm[Hg] Mean Velocity(Antegrade Flow): 0.68 m/s Mean Gradient(Antegrade Flow): 2.26 mm[Hg] Velocity Time Integral: 17.11 cm Tricuspid Valve Peak Velocity (Regurgitant Flow): 2.80 m/s, 2.85 m/s, 2.58 m/s Pulmonic Valve Peak Velocity: 0.46 m/s Peak Gradient: 0.83 mm[Hg] Right Atrium Right Atrium Systolic Pressure: 28.27 ml, 28.27 ml Dictated by: Sally Finn M.D. on 08/30/2025 at 12:54 Approved by: Sally Finn M.D. on 08/30/2025 at 12:59
== END 2025-08-29 09:56 | disposition home or self-care (01) ==
LOC: CARD 09:55
PROVIDERS: PCP Family Medicine; Visit Provider Internal Medicine Interventional Cardiology
DX: I50.22 Chronic systolic (congestive) heart failure (principal)
CPT/HCPCS: 93306